=== PATIENT | male | born 1975 | race Caucasian/White ===

== ENCOUNTER 2024-10-06 20:32 | Emergency (ER) | payer SELFPAY ==
[2024-10-06 20:37] VITALS: BP 131/98
[2024-10-06 21:03] VITALS: BMI 32.8
--- NOTE | 2024-10-06 21:30 | ED.GENMED ---
History of Present Illness
General
Chief Complaint: Alcohol Problem
Source: patient and police
Exam Limitations: none
Time Seen by Provider: 10/06/24 20:52
History of Present Illness
History of Present Illness:
49-year-old male arrested by the police for threatening with a firearm. Upon arrival of the house he was intoxicated. Blew a 243. Has been with police since 430 this afternoon. Neurologically improved significantly per the police from an alcohol
standpoint. Patient denies any initial medical complaint. No trauma.
Past History
Past History
ED Past Medical History: GERD, HTN, Hypercholesterolemia and Other (Alcohol withdrawal seizures)
ED Past Surgical History: Orthopedic (Ankle surgery)
Social History
Tobacco: Smoker
Alcohol: Binge drinker (daily recently, 5th of vodka today)
Personal: Other (Seperated)
Living: alone
Employment: Employed
Review of Systems
Review of Systems
All Other Systems: Not applicable
Respiratory: Reports no symptoms
Cardiac: Reports no symptoms
ABD/GI: Reports no symptoms
Neurological: Reports no symptoms
Phy Exam
Physical Exam
Physical Exam:
GENERAL: Alert and oriented in no apparent distress. Mildly intoxicated but fully awake alert able to converse without difficulty. No scalp trauma.
EYE: Orbits normal.
NECK: Supple, nontender .
ENT: Pharynx without erythema
CARDIAC: Regular rate and rhythm without any obvious murmurs.
LUNGS: Clear breath sounds,normal
ABDOMEN: Soft, moderate tenderness left lower quadrant. No rebound or guarding no mass or hernia.
NEUROLOGICAL: Alert and oriented , grossly non-focal
SKIN: Warm and dry, no rash or lesion, no discoloration, skin intact.
MUSCULOSKELETAL: No edema,no deformity.Good color
PSYCH: Normal and appropriate interaction.
Scores
Withdrawal Assessment of Alcohol
Withdrawal Assessment Completed?: Not applicable
Course
Orders/Labs/Results
Orders:
Orders
10/06/24 21:07
CT Head W/o Iv Contrast Urgent
Comment:
Reason For Exam: Intoxicated/mental status change
IV Insert/Care/Rem.- Treatment PRN
10/06/24 21:08
CT Abd/Pel (IV only)-DH only Urgent
Comment:
Reason For Exam: Left lower quadrant pain
10/06/24 21:59
Alcohol Urgent
Complete Blood Count/With Diff Urgent
Comprehensive Metabolic Panel Urgent
Lipase Urgent
Urinalysis Reflex To Culture Urgent
Date Specimen was Collected: 10/06/24
Time Specimen was Collected: 21:52
Abnormal Lab Results
10/06/24
21:59
RBC 4.54 L 10^6/uL
(4.70-6.10)
MCV 98.5 H fL
(80.0-94.0)
MCH 33.3 H pg
(27.0-31.0)
Absolute Lymphs (auto) 3.6 H 10^3/uL
(1.2-3.4)
Chloride 97 L mmol/L
(98-107)
Carbon Dioxide 35 H mmol/L
(22-30)
BUN 21 H mg/dl
(9-20)
Glucose 111 H mg/dl
(70-99)
AST 62 H U/L
(17-59)
ALT 94 H U/L
(0-50)
Alkaline Phosphatase 168 H U/L
(38-126)
10/06/24 21:59
10/06/24 21:59
Vital Signs
Initial and Last Documented VS:
Initial Vital Signs
Temp Pulse Resp BP Pulse Ox
98.4 F 88 15 131/98 98
10/06/24 20:37 10/06/24 20:37 10/06/24 20:37 10/06/24 20:37 10/06/24 20:37
Last Documented Vital Signs
Temp Pulse Resp BP Pulse Ox
98.4 F 84 14 128/88 97
10/06/24 20:37 10/07/24 01:01 10/07/24 01:01 10/07/24 01:01 10/07/24 01:01
MDM/Problems Addressed
Differential Diagnosis Includes:
From a alcohol standpoint patient is stable. Fully awake and alert although mildly intoxicated. Answer questions able to reason. Patient initially had no medical complaint however during exam had reproducible left lower quadrant tenderness. He
then noted he has had the symptoms for 2 weeks. Discussed a workup for this now versus later. Workup is started. CT labs pending
*Radiology
Radiology exam reviewed: radiology read reviewed (Negative head CT. Esophagitis and renal mass.)
*Pulse Oximetry
Patient hypoxic: no
*Critical Care Note
Total Time (30-74mins, 75-104mins- exclusive of procedures): Not Applicable
Data Reviewed
Review of Other/Old Records Reveals: Labs and Records
Update Note
Update Note:
Patient fully awake alert and oriented. He is hungry. He is eating. No distress. He was given a copy of CT report and it was made clear patient needs follow-up CT or MRI of his kidney and should be followed up with GI for his esophagitis.
Nothing acute to admit medically for he is medically cleared for incarceration
ED Attending Note
-
Portions of this chart may have been created with voice recognition software.� Occasional wrong word or��sound alike� substitutions may have occurred due to the inherent limitations of voice recognition software.
Discharge Plan
Departure
Patient Disposition: Care Home
Date of Disposition: 10/07/24
Time of Disposition: 00:03
Patient with high blood pressure during this ER visit?: Yes
Discharge Problem:
Alcohol intoxication, Medical clearance for incarceration, Lower abdominal pain, Esophagitis, Renal mass
Instructions: Esophagitis, Alcohol Intoxication ED, Abdominal Pain, BLOOD PRESSURE
Prescriptions:
No Action
lorazepam [Ativan] 2 MG tablet
2 mg PO DAILY
Referrals:
Ivanna Long MD [Active] - Next open appointment
UNKNOWN - PT DOES,NOT KNOW [Family Provider] -
Activity Restrictions/Additional Instructions:
You need to follow-up with your primary physician and get an MRI or dedicated CT of the kidney to evaluate this kidney mass
You also should follow-up with a GI physician. I listed 1 above. I would recommend taking a Pepcid per day for now. However you will likely need an upper endoscopy done
You are cleared for incarceration tonight
Interventions
Interventions:
*Risk Screen - Suicide Last Done: 10/06/24 20:37
*General Assessment Last Done: 10/06/24 20:37
*Neglect/Abuse Screening Last Done: 10/06/24 20:37
ED- Fall Risk Assessment Last Done: 10/06/24 21:03
*ED COVID-19 Vaccine History Last Done: 10/06/24 21:03
*Nursing Disposition Last Done: 10/07/24 01:02
ED- Neurological Assessment Last Done: 10/06/24 21:03
ED-Psychological Assessment Last Done: 10/06/24 21:03
Discharge Date and Time
Discharge Date/Time: 10/07/24 01:03
Print Language: [place]
[2024-10-06 22:09] LABS: % Basophils 0.8 % (0-2); % Eosinophils 0.8 % (0-6); % Immature Granulocytes 0.3 % (0-0.5); % Lymphocytes 45.7 % (20.5-51.1); % Monocytes 7.7 % (1.7-9.3); % Neutrophils 44.7 % (42.2-75.2); Absolute Basophils 0.1 10^3/uL (0-0.2); Absolute Eosinophils 0.1 10^3/uL (0-0.7); Absolute Lymphocytes 3.6 10^3/uL (1.2-3.4); Absolute Monocytes 0.6 10^3/uL (0.1-0.6); Absolute Neutrophils 3.5 10^3/uL (1.4-6.5); Hematocrit 44.7 % (39.0-52.0); Hemoglobin 15.1 g/dL (13.0-18.0); Mean Corp Hgb Conc. 33.8 g/dL (33.0-37.0); Mean Corpuscular Hgb 33.3 pg (27.0-31.0); Mean Corpuscular Volume 98.5 fL (80.0-94.0); Mean Platelet Volume 9.3 fL (7.4-10.4); Nucleated Red Blood Cells % 0 % (-); Platelet Count 174 10^3/uL (130-400); Red Blood Cell Count 4.54 10^6/uL (4.70-6.10); Red Cell Dist. Width 13.7 % (11.5-14.5); White Blood Cell Count 7.8 10^3/uL (4.8-10.8)
[2024-10-06 22:10] LABS: Urine Albumin Negative (Neg - Trace); Urine Bilirubin Negative (Negative); Urine Character Clear (Clear); Urine Color Yellow; Urine Glucose Negative (Negative); Urine Ketone Negative (Negative); Urine Leukocyte Negative (Negative); Urine Nitrite Negative (Negative); Urine Occult Blood Negative (Negative); Urine Urobilinogen Negative (Neg - 1+); Urine pH 6.5 (5.0-9.0)
[2024-10-06 22:43] LABS: ALT (SGPT) 94 U/L (0-50); AST (SGOT) 62 U/L (17-59); Albumin 4.3 g/dl (3.5-5.0); Alcohol 240 mg/dl; Alkaline Phosphatase 168 U/L (38-126); Blood Urea Nitrogen 21 mg/dl (9-20); Calcium 8.6 mg/dl (8.4-10.2); Carbon Dioxide 35 mmol/L (22-30); Chloride 97 mmol/L (98-107); Estimated Creatinine Clearance > 125 ml/min; Glucose 111 mg/dl (70-99); Lipase 136 U/L (23-300); Potassium 4.1 mmol/L (3.5-5.1); Sodium 141 mmol/L (135-145); Total Bilirubin 1.3 mg/dl (0.2-1.3); Total Protein 7.2 g/dl (6.3-8.2); eGFR > 60.00
[2024-10-07 01:01] VITALS: BP 128/88
== END 2024-10-07 01:03 ==
LOC: EMR 20:32
PROVIDERS: EMERGENCY PHYSICIAN Emergency Medicine
DX: F10.129 Alcohol abuse with intoxication, unspecified (principal); R10.30 Lower abdominal pain, unspecified; K21.00 Gastro-esophageal reflux disease with esophagitis, without bleeding; I10 Essential (primary) hypertension; E78.00 Pure hypercholesterolemia, unspecified; F17.200 Nicotine dependence, unspecified, uncomplicated; N28.89 Other specified disorders of kidney and ureter
CPT/HCPCS: 99284; 70450; 74177; 80053; 81003; 82077; 83690; 85025; Q9967

== ENCOUNTER 2025-03-06 06:16 | Emergency (ER) | payer BC, SELFPAY ==
[2025-03-06] VITALS (16 sets, daily range): BP systolic 124–162; BP diastolic 84–103; BMI 30.1
--- NOTE | 2025-03-06 07:43 | ED.MUSCINJ ---
HPI-Injury
<Jennifer Young PROGRAM SUPPORT ASSISTANT - Last Filed: 03/06/25 15:55>
General
Chief Complaint: Musculo-Skeletal Complaint
Source: patient
Exam Limitations: none
Time Seen by Provider: 03/06/25 07:02
Nursing documentation reviewed up to this point in time: agreed with
History of Present Illness-Injury
Initial Injury comments:
49-year-old male with no significant past medical history states he tripped over his dog 2 days ago landing on his back and his right shoulder. Initially not much pain but his shoulder has gradually become more painful, pain radiating down the arm
and now he cannot even lift his arm.
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
Past History
<Jennifer Young, PROGRAM SUPPORT ASSISTANT - Last Filed: 03/06/25 15:55>
Past History
ED Past Medical History: GERD, HTN, Hypercholesterolemia and Other (Alcohol withdrawal seizures)
ED Past Surgical History: Orthopedic (Ankle surgery)
Social History
Tobacco: Smoker
Alcohol: Other (23-week)
Personal: (Seperated)
Living: alone
Employment: Employed
Review of Systems
<Jennifer Young, PROGRAM SUPPORT ASSISTANT - Last Filed: 03/06/25 15:55>
Review of Systems
Allergies reviewed?: Yes
All Other Systems: ROS reviewed and negative except as documented in HPI and ROS
Respiratory: Reports no symptoms
Cardiac: Reports no symptoms
ABD/GI: Reports no symptoms
Musculoskeletal: Reports other (Pain and inability to move right shoulder)
Skin: Reports no symptoms
Neurological: Denies weakness or numbness
Phy Exam
<Jennifer Young, PROGRAM SUPPORT ASSISTANT - Last Filed: 03/06/25 15:55>
Physical Exam
Physical Exam:
GENERAL: No acute distress. A&Ox3.
CONSTITUTIONAL: Afebrile.
EYES: clear, conjunctivae normal
ENMT: moist mucus membranes, Pharynx nl
RESPIRATORY: Regular respirations, nonlabored, lungs clear.
CARDIOVASCULAR: Regular rate and rhythm, no murmurs, no rubs.
GI: Soft, nontender, normal BS
MUSCULOSKELETAL: No spinal bony tenderness pain with palpation about the right shoulder, unable to lift the arm, distal neurovascular intact moves with ease. Well perfused.
SKIN: Warm, dry, pink
PSYCH: Normal mood and affect. Well kept, interactive and appropriate
NEUROLOGIC: Awake, alert and oriented. No focal neurological deficits
Injury Course
<Jennifer Young PROGRAM SUPPORT ASSISTANT - Last Filed: 03/06/25 15:55>
Orders/Labs/Results
Orders:
Orders
03/06/25 06:33
Shoulder, Right, Trauma [CR Shoulder, Trauma - Right] Urgent
Comment:
Reason For Exam: fall
03/06/25 08:21
Propofol [Diprivan] 20 ml .ROUTE .STK-MED
03/06/25 08:52
CR Shoulder - Right 1 View Urgent
Reason For Exam: shoulder reduction right
03/06/25 09:01
Shoulder Immobilizer Right- Tx ONCE
<Emmanuel Menjivar, DO - Last Filed: 03/06/25 09:08>
Orders/Labs/Results
Orders:
Orders
03/06/25 06:33
Shoulder, Right, Trauma [CR Shoulder, Trauma - Right] Urgent
Comment:
Reason For Exam: fall
03/06/25 08:21
Propofol [Diprivan] 20 ml .ROUTE .STK-MED
03/06/25 08:52
CR Shoulder - Right 1 View Urgent
Reason For Exam: shoulder reduction right
03/06/25 09:01
Shoulder Immobilizer Right- Tx ONCE
Procedures
<Jennifer Young PROGRAM SUPPORT ASSISTANT - Last Filed: 03/06/25 15:55>
Moderate Sedation
ASA Risk Score: Class I
Chart and allergies reviewed: Yes
Consent for anesthesia obtained: Yes
Time out completed (validating right patient & procedure): Yes
Moderate Sedation Start Time(when first medication is given): 08:48
History of difficult intubation: No
Airway free of obstruction: Yes
Patient has a gag reflex: Yes
Patient is able to open mouth: Yes
Patient has no dentures: Yes
Patient has no loose teeth: Yes
Medication administered by Provider during Moderate Sedation: IV Propofol (mg)
Total dose administered: 150
Time drug administered: 08:48
Moderate Sedation Procedure End Time: 09:02
Comment: pt tolerated procedure well.
Joint/Fracture Reduction
Right Shoulder:
Indication for procedure:: dislocated right shoulder
Procedure completed by: Dr. Menjivar
Consent form signed: Yes
If no, reason: Emergency procedure
Joint reduced: with anesthesia sedation
Anesthesia/sedation: Moderate sedation
Injury was: closed
Further treatement: needs re-check only
Post reduction exam: stable
Capillary Refill: normal
Normal distal neurovascular exam?: Yes
<Jennifer Young PROGRAM SUPPORT ASSISTANT - Last Filed: 03/06/25 15:55>
MDM/Problems Addressed
MDM/Problems Addressed:
49-year-old male with no significant past medical history states he tripped over his dog 2 days ago landing on his back and his right shoulder. Initially not much pain but his shoulder has gradually become more painful, pain radiating down the arm
and now he cannot even lift his arm.
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
X-ray of right shoulder reveals a dislocated humeral head
After injecting 6 mL of 50% lidocaine 50% bupivacaine posteriorly into the shoulder space, unable to reduce the shoulder due to pain
Consent signed for moderate sedation.
9:45 AM:
Patient is wide-awake, drinking, out of bed and ambulating
Sling applied distal neurovascular intact
Stable for discharge
Referred to orthopedics for follow-up
<Jennifer Young, PROGRAM SUPPORT ASSISTANT - Last Filed: 03/06/25 15:55>
*Critical Care Note
Total Time (30-74mins, 75-104mins- exclusive of procedures): Not Applicable
ED Attending Note
<Jennifer Young, PROGRAM SUPPORT ASSISTANT - Last Filed: 03/06/25 15:55>
-
Portions of this chart may have been created with voice recognition software.� Occasional wrong word or��sound alike� substitutions may have occurred due to the inherent limitations of voice recognition software.
<Emmnauel Menjivar DO - Last Filed: 03/06/25 09:08>
ED Attending Note
Patient seen and examined by attending physician: Yes
I performed the substantive portion of visit, reviewed & personally made and approve the management plan that is documented in note by myself or JAYJAY.: Yes
ED Attending Note:
Seen with PROGRAM SUPPORT ASSISTANT examined independently 49-year-old male fell a few days ago right shoulder dislocation, reduced with aid of procedural sedation see note for details
Discharge Plan
Departure
Patient Disposition: Home (Routine Discharge)
Date of Disposition: 03/06/25
Time of Disposition: 09:42
Patient with high blood pressure during this ER visit?: No
Condition: Good
Discharge Problem:
Anterior dislocation of right shoulder
Instructions: Shoulder Dislocation (DC), Shoulder Rehab Exercises, Phase 1, Using Cold for Pain
Prescriptions:
No Action
lorazepam [Ativan] 2 MG tablet
2 mg PO DAILY
Referrals:
PRIVATE,PHYSICIAN [Family Provider] -
Raymundo Sullivan MD [Active] - Call in 1-3 days for appt
Activity Restrictions/Additional Instructions:
As we discussed, wear the sling for the next 2-3 days as needed for comfort and support. Tylenol or ibuprofen as needed for pain
Cold compress 20 minutes off and on for the next 2 days as much as you can to minimize swelling
Limited motion of the right shoulder until it has some time to heal.
You may do some gentle rehab exercises as I showed you starting Friday if not too painful.
See the orthopedic doctor in 1-2 weeks for recheck to be sure you didn't tear anything and you don't need any further imaging.
Interventions
Interventions:
*Risk Screen - Suicide Last Done: 03/06/25 06:17
*General Assessment Last Done: 03/06/25 06:17
*Neglect/Abuse Screening Last Done: 03/06/25 06:17
*ED- Fall Risk Assessment Last Done: 03/06/25 06:17
*ED COVID-19 Vaccine History Last Done: 03/06/25 06:17
*Nursing Disposition Last Done: 03/06/25 11:17
ED-Musculoskeletal Assessment Last Done: 03/06/25 06:42
Discharge Date and Time
Discharge Date/Time: 03/06/25 11:17
Print Language: [place]
== END 2025-03-06 11:17 | disposition home or self-care (01) ==
LOC: EMR 06:16
PROVIDERS: EMERGENCY PHYSICIAN Emergency Medicine
DX: S43.014A Anterior dislocation of right humerus, initial encounter (principal); W01.0XXA Fall on same level from slipping, tripping and stumbling without subsequent striking against object, initial encounter; W18.09XA Striking against other object with subsequent fall, initial encounter; E78.00 Pure hypercholesterolemia, unspecified; I10 Essential (primary) hypertension; K21.9 Gastro-esophageal reflux disease without esophagitis; R56.9 Unspecified convulsions; F17.200 Nicotine dependence, unspecified, uncomplicated
CPT/HCPCS: 99285; 23650; 99152; 73020; 73030